=== PATIENT | female | born 1970 | race Caucasian/White ===

== ENCOUNTER 2017-01-27 09:25 | Day surgery (SDC) | payer BC ==
[2017-01-27] MEDS ORDERED: DIPRIVAN 200 MG/20 ML IV ONE (10:00)
--- NOTE | 2017-01-27 13:15 | XRAY ---
Indication: Right L3-S1 MBB. Intraoperative fluoroscopy was provided for 12 seconds. Single digital spot image submitted for interpretation demonstrates 4 posterior spinal needles with the tips projecting adjacent to the right L3-S1 superior facets. Correlate with intraoperative findings/report.
[2017-01-27] MEDS ORDERED: Lactated Ringers IV ONE (15:23)
[2017-01-27] MEDS ORDERED: Kenalog-40 IM ONE (15:23)
[2017-01-27] MEDS ORDERED: Sensorcaine 0.25% 10 ML IJ ONE (15:23)
--- NOTE | 2017-01-27 16:35 | XRAY ---
12 seconds of fluoroscopy was used in surgery for a right MBB L3-S1.
== END 2017-01-27 12:10 | disposition home or self-care (01) ==
LOC: SDC-PAIN 09:25
PROVIDERS: ATTEND Pain Medicine Interventional Pain Medicine
DX: M46.1 Sacroiliitis, not elsewhere classified (principal); M47.26 Other spondylosis with radiculopathy, lumbar region; M25.559 Pain in unspecified hip; Z79.891 Long term (current) use of opiate analgesic
CPT/HCPCS: 64493; 64494; 64495; 72020; 77003; J2704; J3301

== ENCOUNTER 2017-03-03 15:21 | Day surgery (SDC) | payer BC ==
[~2017-03-03 15:21] MED LIST: DIPRIVAN 200 MG/20 ML IV ONE; Kenalog-40 IM ONE; Lactated Ringers 1,000 ML IV ONE; Sensorcaine 0.25% 10 ML IJ ONE
--- NOTE | 2017-03-03 19:05 | XRAY ---
Indication: Right L2-L5 MBB. Intraoperative fluoroscopy was provided for 8 seconds. Single digital spot image submitted for interpretation demonstrates posterior spinal needles with the tips projecting over the expected course of the right L2-L5 nerve roots. Correlate with intraoperative findings/report.
--- NOTE | 2017-03-04 08:42 | XRAY ---
8 seconds fluoroscopy time in surgery for right L2-5 MBB
== END 2017-03-03 18:05 | disposition home or self-care (01) ==
LOC: SDC-PAIN 15:21
PROVIDERS: ATTEND Pain Medicine Interventional Pain Medicine
DX: M46.1 Sacroiliitis, not elsewhere classified (principal); M47.26 Other spondylosis with radiculopathy, lumbar region; M25.559 Pain in unspecified hip; Z79.891 Long term (current) use of opiate analgesic
CPT/HCPCS: 64493; 64494; 64495; 72020; 77003; J2704; J3301

== ENCOUNTER 2017-08-07 10:25 | Emergency (ER) | payer BC, OTHER ==
[2017-08-07] MEDS ORDERED: BACIGUENT PACKET TP ONE (11:34)
[2017-08-07] MEDS ORDERED: Marcaine 0.5% SDV 10 ML IJ ONE (11:34)
--- NOTE | 2017-08-07 11:37 | ERPHSYRPT ---
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 Burning pain in the ring finger. Tetanus vaccine up to date. No other injuries. Occurred: just prior to arrival Severity of Pain-Max: moderate Severity of Pain-Current: moderate Extremities Pain Location: 4th finger: left Allergies/Adverse Reactions: Penicillins Adverse Reaction (Verified 08/07/17 10:44) Home Medications: Omeprazole 20 MG [Prilosec 20 mg] 20 mg PO DAILY 11/25/13 [History] Biotin 10 mg PO DAILY 11/10/16 [History] Ca/D3/Mag Ox/Zinc/Telemarketing Supervisor/Tray/Bor [Calcium +D & Minerals Chew Tab] 1 each PO DAILY 11/10/16 [History] L.acidoph,Paracasei, B.lactis [Probiotic] 1 each PO TID 11/10/16 [History] Multivitamin with Minerals [One Daily Active] 1 each PO DAILY 11/10/16 [History] Omega3/Dha/Epa/Fish Oil/Vit D3 [Fish Oil + Vitamin D-3 Softgel] 1 each PO BID [History] [place]'s Wort 150 mg PO BID 11/10/16 [History] Hydrocodone Bit/Acetaminophen [[facility] 5-325 Tablet] 1 each PO Q6HPRN PRN [History] Hx Tetanus, Diphtheria Vaccination/Date Given: Yes (3 YRS) Hx Influenza Vaccination/Date Given: No Hx Pneumococcal Vaccination/Date Given: No Immunizations Up to Date: Yes - Review of Systems Constitutional: No Symptoms Musculoskeletal: Injury (left ring finger), No Back Pain, No Neck Pain Neurological: No Focal Weakness, No Parasthesia - Past Medical History Pertinent Past Medical History: Yes Other Medical History: BLEEDING ULCER - Past Surgical History Past Surgical History: No - Social History Smoking Status: Current every day smoker Exposure to second hand smoke: No Drug Use: none Patient Lives Alone: No - Nursing Vital Signs Nursing Vital Signs: Initial Vital Signs Temperature 98.4 F 08/07/17 10:41 Pulse Rate 66 08/07/17 10:41 Respiratory Rate 20 08/07/17 10:41 Blood Pressure 123/74 08/07/17 10:41 O2 Sat by Pulse Oximetry 98 08/07/17 10:41 Pain Scale Pain Intensity 2 - Physical Exam General Appearance: alert Eyes, Ears, Nose, Throat Exam: moist mucous membranes Neck Exam: supple Cardiovascular/Respiratory Exam: regular rate/rhythm Neuro/Tendon Exam: normal sensation (2 point intact distal to wound), normal motor functions, normal tendon functions Mental Status Exam: alert, oriented x 3, cooperative Skin Exam: warm, dry, No rash SpO2 Interpretation: normal SpO2: 98 Oxygen Delivery: Room Air Comments: 1.5 cm laceration palmar aspect left hand 4th finger at DIP. Procedures - Laceration/Wound Repair left ring finger Wound Location: Left Wound Length (cm): 1.5 Wound's Depth, Shape: linear, flap Wound Explored: no foreign body noted Irrigated: Yes Hibiclens Prep: Yes Anesthesia: digital block, marcaine 0.5 Volume Anesthetic (ccs): 3 Wound Repaired With: sutures Suture Size/Type: 4-0, nylon Number of Sutures: 3 Progress: 08/07/17 12:40 There was skin bleeding so brief tourniquette using ernesto drain applied. This wound is superficial and no tendon involvement. Good ROM. Repaired. Wound instr given. - Course Nursing assessment & vital signs reviewed: Yes Ordered Tests: Active Orders 24 hr Category Date Time Status Wound Care STAT Care 08/07/17 11:34 Active Medication Summary Discontinued Medications Generic Name Dose Route Start Last Admin Trade Name Jong PRN Reason Stop Dose Admin Bacitracin 0.9 gm 08/07/17 11:34 08/07/17 11:39 Baciguent Packet TP 08/07/17 11:35 0.9 gm STAT ONE Administration Bupivacaine HCl 5 ml 08/07/17 11:34 08/07/17 11:40 Marcaine 0.5% Sdv 10 Ml IJ 08/07/17 11:35 5 ml STAT ONE Administration Bupivacaine HCl Confirm 08/07/17 11:38 Marcaine 0.5% Sdv 10 Ml Administered 08/07/17 11:39 Dose 10 ml .ROUTE .STK-MED ONE - Progress Counseled pt/family regarding: diagnosis, need for follow-up - Departure Time of Disposition: 12:40 Departure Disposition: Home Clinical Impression: Laceration of finger Qualifiers: Encounter type: initial encounter Finger: ring finger Damage to nail status: without damage Foreign body presence: without foreign body Laterality: left Qualified Code(s): S61.215A - Laceration without foreign body of left ring finger without damage to nail, initial encounter Condition: Stable Critical Care Time: No Referrals: AP LEYVA [Primary Care Provider] - Instructions: Care for a Laceration After Repair Additional Instructions: LACERATION CARE 1. Do not use peroxide, merthiolate, alcohol, or betadine. 2. Keep wound clean and dry. 3. Change dressing if it becomes wet or soiled. 4. If you must work, wear protective covering. 5. You may return to the emergency department or see your family physician for suture removal. 6. See your family physician or return to the emergency department for any of the following signs or symptoms: A. Redness B. Swelling C. Discolored drainage D. Red streaks E. Elevated temperature F. Other signs of infection Suture removal in 13-14 days. Follow up with workers's comp doctor. May return to work but keep finger clean and dry.
[2017-08-07] MEDS ORDERED: Marcaine 0.5% SDV 10 ML ONE (11:38)
[2017-08-07] MEDS ORDERED: BACIGUENT PACKET ONE (12:49)
[2017-08-07 13:10] VITALS: BP 116/73; PULSE 70; O2SAT 99
== END 2017-08-07 13:08 | disposition home or self-care (01) ==
LOC: ED 10:25
PROC: 0HQGXZZ Repair Left Hand Skin, External Approach (ICD-10-PCS; principal; 2017-08-07)
DX: S61.215A Laceration without foreign body of left ring finger without damage to nail, initial encounter (principal); W26.0XXA Contact with knife, initial encounter; Y92.512 Supermarket, store or market as the place of occurrence of the external cause; Y99.0 Civilian activity done for income or pay
CPT/HCPCS: 12001; 99283; A9270-GY

== ENCOUNTER 2018-01-26 12:45 | Day surgery (SDC) | payer BC, SELFPAY ==
[2018-01-26] MEDS ORDERED: Xylocaine-Mpf 2% 5 Ml Vial IJ ONE (12:46)
[2018-01-26] MEDS ORDERED: Lactated Ringers 1,000 ML IV ONE (12:46)
[2018-01-26] MEDS ORDERED: DIPRIVAN 200 MG/20 ML IV ONE (12:46)
[2018-01-26] MEDS ORDERED: Xylocaine-Mpf 2 ML IJ ONE (12:46)
[2018-01-26] MEDS ORDERED: Marcaine 0.5% SDV 10 ML IJ ONE (12:46)
[2018-01-26] MEDS ORDERED: Ketamine HCl 50 MG/ML IV ONE (12:46)
--- NOTE | 2018-01-26 15:11 | XRAY ---
Indication: Right L2-L4 RFA. Intraoperative fluoroscopy was provided for 30 seconds. 2 digital spot images submitted for interpretation demonstrates posterior spinal needle tips projecting over the right L2, L3, and L4 pedicles. Correlate with intraoperative findings/report.
--- NOTE | 2018-01-26 15:13 | XRAY ---
30 seconds fluoroscopy time in surgery for right L2-4 RFA.
--- NOTE | 2018-01-27 11:14 | OP ---
DATE OF PROCEDURE: 01/26/2018 1417 SURGEON: Judd Diggs D.O. PREOPERATIVE DIAGNOSIS: Degenerative lumbosacral spine disease, spondylosis, low back pain. POSTOPERATIVE DIAGNOSIS: Degenerative lumbosacral spine disease, spondylosis, low back pain. PROCEDURES PERFORMED: Right L4, L3, L2 medial branch radiofrequency ablation under fluoroscopic guidance. DESCRIPTION OF PROCEDURE: The patient was taken to the operating room and laid in the prone position on the table. The skin over the injection site was prepped and draped in sterile fashion. Under fluoroscopy bony anatomy of the target injection site was visualized. Induction agent was given as per anesthesia while vital signs were monitored. Local anesthetic agent was introduced to anesthetize the skin and the subcutaneous tissue through the injection site. Under fluoroscopic guidance a standard size spinal needle with cannula was advanced into the target medial branch nerve as per standard protocol. Before the radiofrequency ablation motor and sensory nerve testing was conducted as per protocol. Under the safety guidance which ensured no motor nerves being involved, right L4, L3, L2 medial branch radiofrequency ablation was conducted at 80 degrees Celsius for 90 seconds as per standard protocol. After the spinal needle with the cannula was removed the skin was cleansed with alcohol and then a bandage was applied. No complications or adverse occurrences were observed. The patient was returned to the holding area until stabilized before being discharged to home. The residual pain after the procedure is 0 out of 10. There was no muscle weakness after the procedure. The patient will be followed up within 10 days after the procedure for re-evaluation.
== END 2018-01-26 15:25 | disposition home or self-care (01) ==
LOC: SDC-PAIN 12:45
PROVIDERS: ATTEND Internal Medicine
DX: M46.96 Unspecified inflammatory spondylopathy, lumbar region (principal); M54.5 Low back pain; M62.838 Other muscle spasm; Z79.891 Long term (current) use of opiate analgesic
CPT/HCPCS: 64635; 64636; 72020; 76000; J2704

== ENCOUNTER 2018-03-09 09:23 | Day surgery (SDC) | payer BC ==
[2018-03-09] MEDS ORDERED: LIDOCAINE HCL 1% AMPUL 5 ML IJ ONE (09:24)
[2018-03-09] MEDS ORDERED: DIPRIVAN 200 MG/20 ML IV ONE (09:24)
[2018-03-09] MEDS ORDERED: Marcaine 0.5% SDV 10 ML IJ ONE (09:24)
[2018-03-09] MEDS ORDERED: Lactated Ringers 1,000 ML IV ONE (10:29)
--- NOTE | 2018-03-09 13:03 | XRAY ---
Indication left L2-L4 MBB. Intraoperative fluoroscopy was provided for 1 minute 6 seconds. 4 digital spot images submitted for interpretation demonstrates posterior spinal needle tips projecting over the expected course of the left L2, L3, and L4 nerve roots. Correlate with intraoperative findings/report.
--- NOTE | 2018-03-09 13:15 | XRAY ---
1 minute and 6 seconds fluoroscopy time in surgery for left L2-4 MBB.
--- NOTE | 2018-03-10 10:28 | OP ---
DATE OF PROCEDURE: 03/09/2018 1124 SURGEON: Judd Diggs D.O. PREOPERATIVE DIAGNOSIS: Degenerative lumbar spine disease, spondylosis, low back pain. POSTOPERATIVE DIAGNOSIS: Degenerative lumbar spine disease, spondylosis, low back pain. PROCEDURE PERFORMED: Left L4, L3, L2 medial branch block under fluoroscopic guidance. DESCRIPTION OF THE PROCEDURE: The patient was taken to the operating room and placed in the prone position on the table. Skin at the injection site was prepped and draped in sterile fashion. Under fluoroscopy, bony anatomy of the targeted injection site was visualized. Induction agent was given as per anesthesia while vital signs were monitored. Local anesthetic agent of 0.5 cc of 1% lidocaine preservative free was introduced to anesthetize the skin and the subcutaneous tissue through the injection site. Under fluoroscopic guidance, a #20 gauge standard spinal needle was advanced into the target medial branch through the oblique approach. The preservative free 0.5 cc of 1% lidocaine and 0.5 cc of 0.25%-0.5% Marcaine were injected into each of the targeted medial branch nerve. After the needle was being removed, the skin was cleansed with alcohol and then a bandage was applied. No complications or adverse consequences were observed. The patient was returned to the holding area until stabilized before discharge to home. Preoperative pain level is 10 out of 10 and postoperative pain level is 0 out of 10. The patient will be followed up within ten days after the injection for re-evaluation.
== END 2018-03-09 12:10 | disposition home or self-care (01) ==
LOC: SDC-PAIN 09:23
PROVIDERS: ATTEND Internal Medicine
DX: M46.96 Unspecified inflammatory spondylopathy, lumbar region (principal); M54.5 Low back pain; M62.838 Other muscle spasm; Z79.891 Long term (current) use of opiate analgesic
CPT/HCPCS: 64493; 64494; 64495; 72020; 77003; J2704

== ENCOUNTER 2018-04-04 13:44 | Emergency (ER) | payer BC ==
[2018-04-04] MEDS ORDERED: BABY ASPIRIN 81 MG CHEW PO ONE (13:53)
--- NOTE | 2018-04-04 13:58 | ERPHSYRPT ---
- History of Present Illness Time Seen by Provider: 04/04/18 13:54 Historian: patient Exam Limitations: no limitations Physician History: 47-year-old white female who states she has a history of chronic pain secondary arthritis, she's had bleeding ulcer in the past. She arrives with complaint of pain in the left anterior chest and scapular area symptoms since 11:00 today worse with breathing worse with standing no nausea positive diaphoresis no shortness of breath. Past medical history includes bleeding ulcers, arthritis, chronic pain Past surgical history colonoscopy, EGD Timing/Duration: today (11:00 today), improved Quality: dullness Location: other (left anterior chest and scapular area) Chest Pain Radiation: arm (left shoulder) Severity of Pain-Max: moderate Severity of Pain-Current: mild Modifying Factors: Improves With: breathing (pain worse with breathing and standing) Associated Symptoms: hurts to breathe, diaphoresis, No nausea, No vomiting, No palpitations, No heartburn, No abdominal pain, No shortness of breath, No cough , No chills, No fever, No fatigue, No weakness, No swelling/lump in chest, No syncope, No rash, No headache, No dizziness, No edema, No back pain Prior Chest Pain/Cardiac Workup: no prior chest pain Nitro Today/Relief: no nitro taken today Aspirin Treatment Today: 81 mg x 4, provided by ED Allergies/Adverse Reactions: Penicillins Adverse Reaction (Verified 08/07/17 10:44) Home Medications: Omeprazole 20 MG [Prilosec 20 mg] 20 mg PO BID 11/25/13 [History] Biotin 10 mg PO DAILY 11/10/16 [History] Multivitamin with Minerals [One Daily Active] 1 each PO DAILY 11/10/16 [History] Paroxetine HCl 20 mg [Paxil 20 MG] 20 mg PO DAILY 08/30/17 [History] Tizanidine HCl 4 mg [Zanaflex 4 MG] 4 mg PO HS 01/05/18 [History] Flaxseed Oil [Flax Seed Oil] 1,000 mg PO DAILY 01/25/18 [History] Celecoxib [Celebrex] 200 mg PO DAILY 02/07/18 [History] Loratadine 10 mg [Claritin 10 mg] 10 mg PO DAILY 02/22/18 [History] [place]'s Wort 300 mg PO DAILY 03/31/18 [History] Celecoxib [Celecoxib] 200 mg DAILY 04/04/18 [History] Mesalamine [Apriso] 4 tab DAILY 04/04/18 [History] Hx Tetanus, Diphtheria Vaccination/Date Given: Yes (3 YRS) Hx Influenza Vaccination/Date Given: No Hx Pneumococcal Vaccination/Date Given: No - Review of Systems Constitutional: No Fever, No Chills Eyes: No Symptoms Ears, Nose, & Throat: No Symptoms Respiratory: No Cough, No Dyspnea Cardiac: Chest Pain Abdominal/Gastrointestinal: No Abdominal Pain, No Nausea, No Vomiting, No Diarrhea Genitourinary Symptoms: No Dysuria Musculoskeletal: No Back Pain, No Neck Pain Skin: No Rash Neurological: No Dizziness, No Focal Weakness, No Sensory Changes Psychological: No Symptoms Endocrine: No Symptoms All Other Systems: Reviewed and Negative - Past Medical History Pertinent Past Medical History: Yes Other Medical History: BLEEDING ULCER chronic pain from arthritis - Past Surgical History Past Surgical History: No - Social History Smoking Status: Current every day smoker Exposure to second hand smoke: No Drug Use: none Patient Lives Alone: No - Nursing Vital Signs Nursing Vital Signs: Initial Vital Signs Temperature 97.2 F 04/04/18 13:47 Pulse Rate 70 04/04/18 13:47 Respiratory Rate 16 04/04/18 13:47 Blood Pressure 157/76 04/04/18 13:47 O2 Sat by Pulse Oximetry 94 L 04/04/18 13:47 Pain Scale Pain Intensity 3 - Physical Exam General Appearance: mild distress Eye Exam: PERRL/EOMI, eyes nml inspection Ears, Nose, Throat Exam: normal ENT inspection, moist mucous membranes Neck Exam: normal inspection, non-tender, supple, full range of motion Respiratory Exam: normal breath sounds, lungs clear, No respiratory distress Cardiovascular Exam: regular rate/rhythm, normal heart sounds Gastrointestinal/Abdomen Exam: soft, No tenderness, No mass Back Exam: normal inspection, No CVA tenderness, No vertebral tenderness Extremity Exam: normal inspection, normal range of motion Neurologic Exam: alert, oriented x 3, cooperative, spa coordinator II-XII nml as tested, normal mood/affect, sensation nml, No motor deficits Skin Exam: normal color, warm, dry SpO2 Interpretation: normal - Course Nursing assessment & vital signs reviewed: Yes EKG Interpreted by Me: RATE (76 bpm), Sinus Rhythm, NORMAL AXIS, Other (EKG: Normal sinus rhythm, 76 bpm, normal axis, no acute ST or T wave changes, essentially normal EKG) - Radiology Exams Chest X-ray Interpretation: Interpreted by me (no acute disease process noted) Ordered Tests: Active Orders 24 hr Category Date Time Status Claims Assistant STAT Care 04/04/18 13:53 Active EKG-ER Only STAT Care 04/04/18 13:53 Active IV Insertion STAT Care 04/04/18 13:53 Active Pulse Oximetry (ED) STAT Care 04/04/18 13:53 Active CHEST 1 VIEW (PORTABLE) Stat Exams 04/04/18 13:53 Taken AMYLASE Routine Lab 04/04/18 13:55 Completed CBC W DIFF Stat Lab 04/04/18 13:53 Completed CMP Routine Lab 04/04/18 13:55 Completed D-DIMER QUANTITATION Stat Lab 04/04/18 13:55 Completed HCG QUALITATIVE,SERUM Stat Lab 04/04/18 13:55 Completed LIPASE Routine Lab 04/04/18 13:55 Completed PROTIME WITH INR Stat Lab 04/04/18 13:55 Completed PTT Stat Lab 04/04/18 13:55 Completed TROPONIN Q3H Lab 04/04/18 13:55 Completed TROPONIN Q3H Lab 04/04/18 17:00 Ordered TROPONIN Q3H Lab 04/04/18 20:00 Ordered TROPONIN Q3H Lab 04/04/18 23:00 Ordered TROPONIN Q3H Lab 04/05/18 02:00 Ordered Medication Summary Discontinued Medications Generic Name Dose Route Start Last Admin Trade Name Freq PRN Reason Stop Dose Admin Aspirin 324 mg 04/04/18 13:53 04/04/18 14:16 Baby Aspirin 81 Mg Chew PO 04/04/18 13:54 324 mg STAT ONE Administration Aspirin Confirm 04/04/18 14:15 Baby Aspirin 81 Mg Chew Administered 04/04/18 14:16 Dose 324 mg .ROUTE .STK-MED ONE Lab/Rad Data: Laboratory Result Diagrams 04/04/18 13:53 04/04/18 13:55 Laboratory Results 04/04/18 04/04/18 04/04/18 Range/Units 13:55 13:55 13:55 WBC (4.0-10.5) K/mm3 RBC (4.1-5.4) M/mm3 Hgb (12.0-16.0) gm/dl Hct (35-47) % MCV (78-100) fl MCH (26-32) pg MCHC (32-36) g/dl RDW (11.5-14.0) % Plt Count (150-450) K/mm3 MPV (6-9.5) fl Gran % (36.0-66.0) % Eos # (Auto) (0-0.5) Absolute Lymphs (auto) (1.0-4.6) Absolute Monos (auto) (0.0-1.3) Lymphocytes % (24.0-44.0) % Monocytes % (0.0-12.0) % Eosinophils % (0.00-5.0) % Basophils % (0.0-0.4) % Absolute Granulocytes (1.4-6.9) Basophils # (0-0.4) PT 11.2 (9.95-12.35) SECONDS INR 0.96 (0.8-3.0) APTT 34.0 (25.3-37.0) SECONDS D-Dimer 333 (215-500) ng/mL Sodium 144 (137-145) mmol/L Potassium 3.6 (3.5-5.1) mmol/L Chloride 107 (98-107) mmol/L Carbon Dioxide 27 (22-30) mmol/L Anion Gap 13.2 (5-15) MEQ/L BUN 18 H (7-17) mg/dL Creatinine 0.70 (0.52-1.04) mg/dL Estimated GFR > 60.0 ML/MIN Glucose 112 H (74-106) mg/dL Calcium 9.4 (8.4-10.2) mg/dL Total Bilirubin 0.10 L (0.2-1.3) mg/dL AST 25 (14-36) U/L ALT 26 (0-35) U/L Alkaline Phosphatase 107 (38-126) U/L Troponin I < 0.012 (0.000-0.034) ng/mL Serum Total Protein 7.1 (6.3-8.2) g/dL Albumin 4.1 (3.5-5.0) g/dL Amylase 74 (30-110) U/L Lipase 95 (23-300) U/L Serum , Qual NEGATIVE (Negative) 04/04/18 Range/Units 13:53 WBC 7.4 (4.0-10.5) K/mm3 RBC 4.37 (4.1-5.4) M/mm3 Hgb 12.4 (12.0-16.0) gm/dl Hct 38.0 (35-47) % MCV 87.0 (78-100) fl MCH 28.4 (26-32) pg MCHC 32.6 (32-36) g/dl RDW 13.7 (11.5-14.0) % Plt Count 285 (150-450) K/mm3 MPV 10.5 H (6-9.5) fl Gran % 55.6 (36.0-66.0) % Eos # (Auto) 0.11 (0-0.5) Absolute Lymphs (auto) 2.49 (1.0-4.6) Absolute Monos (auto) 0.66 (0.0-1.3) Lymphocytes % 33.8 (24.0-44.0) % Monocytes % 9.0 (0.0-12.0) % Eosinophils % 1.5 (0.00-5.0) % Basophils % 0.1 (0.0-0.4) % Absolute Granulocytes 4.10 (1.4-6.9) Basophils # 0.01 (0-0.4) PT (9.95-12.35) SECONDS INR (0.8-3.0) APTT (25.3-37.0) SECONDS D-Dimer (215-500) ng/mL Sodium (137-145) mmol/L Potassium (3.5-5.1) mmol/L Chloride (98-107) mmol/L Carbon Dioxide (22-30) mmol/L Anion Gap (5-15) MEQ/L BUN (7-17) mg/dL Creatinine (0.52-1.04) mg/dL Estimated GFR ML/MIN Glucose (74-106) mg/dL Calcium (8.4-10.2) mg/dL Total Bilirubin (0.2-1.3) mg/dL AST (14-36) U/L ALT (0-35) U/L Alkaline Phosphatase (38-126) U/L Troponin I (0.000-0.034) ng/mL Serum Total Protein (6.3-8.2) g/dL Albumin (3.5-5.0) g/dL Amylase (30-110) U/L Lipase (23-300) U/L Serum , Qual (Negative) - Progress Progress: improved Air Movement: fair Progress Note: 04/04/18 15:16 This is a 47-year-old white female she arrives with complaint of left sided chest pain and left subscapular chest pain Which began at 11:00 patient states she feels like it is related to mesalamine which she just began to take recently. Patient is now feeling much better after resting she was given aspirin 324 mg orally patient's labs are essentially normal with a normal troponin normal d- dimer and, chest x-ray unremarkable EKG sinus rhythm 76 bpm normal axis essentially normal EKG no acute ST or T wave changes. I have offered the patient to obtain repeat cardiac enzymes she does not want this. Will discharge the patient Will have patient contact her pain control electrician for family doctor and discusd the mesalamine with them. Patient is also advised to follow-up with her family doctor. - Departure Time of Disposition: 15:19 Departure Disposition: Home Clinical Impression: Non-cardiac chest pain, rule out medication side effect Condition: Fair Critical Care Time: No Referrals: AP LEYVA [Primary Care Provider] - Additional Instructions: Return home rest. Plenty of fluids. Follow-up with your family doctor or pain control electrician . Contact your pain control electrician or family doctor tomorrow prior to taking more mesalamine Return for acute distress or for severe symptoms.
[2018-04-04] MEDS ORDERED: BABY ASPIRIN 81 MG CHEW ONE (14:15)
[2018-04-04 14:40] LABS: INR 0.96 (0.8-3.0)
[2018-04-04 14:45] LABS: BASOPHIL % 0.1 % (0.0-0.4); Basophil (Absolute #) 0.01 (0-0.4); Eosinophil % 1.5 % (0.00-5.0); Eosinophil (Absolute #) 0.11 (0-0.5); Granulocytes % 55.6 % (36.0-66.0); Hemoglobin 12.4 gm/dl (12.0-16.0); Lymphocyte (Absolute #) 2.49 (1.0-4.6); Lymphocytes % 33.8 % (24.0-44.0); Mean Corpuscular Hemoglobin 28.4 pg (26-32); Mean Corpuscular Hgb Concent. 32.6 g/dl (32-36); Mean Platelet Volume 10.5 fl (6-9.5); Monocyte (Absolute #) 0.66 (0.0-1.3); Platelet Count 285 K/mm3 (150-450); Red Blood Count 4.37 M/mm3 (4.1-5.4); Red Cell Distribution Width 13.7 % (11.5-14.0); White Blood Count 7.4 K/mm3 (4.0-10.5)
[2018-04-04 14:46] LABS: ALBUMIN 4.1 g/dL (3.5-5.0); ALKALINE PHOSPHATASE 107 U/L (38-126); AMYLASE 74 U/L (30-110); ANION GAP 13.2 MEQ/L (5-15); BLOOD UREA NITROGEN 18 mg/dL (7-17); CHLORIDE 107 mmol/L (98-107); Calcium 9.4 mg/dL (8.4-10.2); Carbon Dioxide 27 mmol/L (22-30); Glucose 112 mg/dL (74-106); LIPASE 95 U/L (23-300); Potassium 3.6 mmol/L (3.5-5.1); SGOT/AST 25 U/L (14-36); SGPT/ALT 26 U/L (0-35); SODIUM 144 mmol/L (137-145); Total Protein 7.1 g/dL (6.3-8.2)
[2018-04-04 15:09] LABS: TROPONIN < 0.012 ng/mL (0.000-0.034)
[2018-04-04 15:14] VITALS: PULSE 73
[2018-04-04 15:34] VITALS: BP 116/78; O2SAT 94
--- NOTE | 2018-04-04 19:26 | XRAY ---
Indication: Chest pain and short of breath. Comparison: January 18, 2009. Portable chest again demonstrates normal heart, lungs, and bony thorax.
== END 2018-04-04 15:33 | disposition home or self-care (01) ==
LOC: ED 13:44
DX: R07.89 Other chest pain (principal); Z79.899 Other long term (current) drug therapy
CPT/HCPCS: 36000; 36415; 71045; 80053; 82150; 83690; 84484; 84703; 85025; 85379; 85610; 85730; 93005; 93041; 99284; A9270-GY

== ENCOUNTER 2018-04-06 11:50 | Day surgery (SDC) | payer BC ==
[2018-04-06] MEDS ORDERED: DIPRIVAN 200 MG/20 ML IV ONE (11:51)
[2018-04-06] MEDS ORDERED: Marcaine Mpf 0.5% Vial 30 Ml IJ ONE (11:51)
[2018-04-06] MEDS ORDERED: XYLOCAINE-MPF 1% 5ML SDV IJ ONE (11:51)
[2018-04-06] MEDS ORDERED: Lactated Ringers 1,000 ML IV ONE (13:11)
--- NOTE | 2018-04-06 19:01 | XRAY ---
Exam: Single view spine from 04/06/2018. Comparison: Single view spine from 03/09/2018. Indication: Left L3-L5 facet MBB. Findings: 34 seconds of intraoperative fluoroscopy time was utilized with the C-arm. 3 PA C-arm images were obtained. Distal spinal needle tips are seen in the projection of the anticipated left L3, L4, and L5 exiting nerve roots. Please correlate with intraoperative findings/report.
--- NOTE | 2018-04-07 08:05 | XRAY ---
34 seconds fluoroscopy time in surgery for left L3-L5 facette MBB.
--- NOTE | 2018-04-07 09:10 | OP ---
DATE OF PROCEDURE: 04/06/2018 1310 SURGEON: Judd Diggs D.O. PREOPERATIVE DIAGNOSIS: Degenerative lumbar spine disease, spondylosis, low back pain. POSTOPERATIVE DIAGNOSIS: Degenerative lumbar spine disease, spondylosis, low back pain. PROCEDURE PERFORMED: Left L4, L3, L2 medial branch block under fluoroscopic guidance. DESCRIPTION OF THE PROCEDURE: The patient was taken to the operating room and placed in the prone position on the table. Skin at the injection site was prepped and draped in sterile fashion. Under fluoroscopy, bony anatomy of the targeted injection site was visualized. Induction agent was given as per anesthesia while vital signs were monitored. The medication used for this procedure is 3 cc preservative-free 0.5% Marcaine. The local anesthetic agent used is preservative-free 6 cc of 1% lidocaine. Under fluoroscopic guidance, a #20 gauge standard spinal needle was advanced into the target medial branch through the oblique approach. After the needle was being removed, the skin was cleansed with alcohol and then a bandage was applied. No complications or adverse consequences were observed. The patient was returned to the holding area until stabilized before discharge to home. Preoperative pain level is 8 to 10 out of 10 and the postoperative pain level is 0 out of 10. The patient will be followed up within ten days after the injection for re-evaluation.
== END 2018-04-06 13:50 | disposition home or self-care (01) ==
LOC: SDC-PAIN 11:50
PROVIDERS: ATTEND Internal Medicine
DX: M47.816 Spondylosis without myelopathy or radiculopathy, lumbar region (principal); M46.96 Unspecified inflammatory spondylopathy, lumbar region; M54.5 Low back pain; M62.838 Other muscle spasm; Z79.891 Long term (current) use of opiate analgesic
CPT/HCPCS: 64493; 64494; 64495; 72020; 77003; J2704

== ENCOUNTER 2019-03-22 10:55 | Day surgery (SDC) | payer BC ==
[2019-03-22] MEDS ORDERED: Depo-Medrol 40 MG/ML IM ONE (10:56)
[2019-03-22] MEDS ORDERED: Ketamine HCl 50 MG/ML IJ ONE (10:56)
[2019-03-22] MEDS ORDERED: Marcaine 0.5% SDV 10 ML IJ ONE (10:56)
[2019-03-22] MEDS ORDERED: DIPRIVAN 200 MG/20 ML IV ONE (10:56)
[2019-03-22] MEDS ORDERED: Lactated Ringers 1,000 ML IV ONE (12:45)
--- NOTE | 2019-03-22 13:21 | XRAY ---
14 seconds fluoroscopy time in surgery for bilateral DSI joint injections.
--- NOTE | 2019-03-22 13:23 | XRAY ---
Indication: Bilateral SI joint injection. Intraoperative fluoroscopy was provided for 14 seconds. 4 digital spot images submitted for interpretation demonstrates posterior needle tips projecting over the inferior left and right SI joints. Correlate with intraoperative findings/report.
== END 2019-03-22 12:58 | disposition home or self-care (01) ==
LOC: SDC-PAIN 10:55
PROVIDERS: ATTEND Psychiatry & Neurology Pain Medicine
DX: M46.1 Sacroiliitis, not elsewhere classified (principal); K21.9 Gastro-esophageal reflux disease without esophagitis; F32.9 Major depressive disorder, single episode, unspecified; Z79.899 Other long term (current) drug therapy
CPT/HCPCS: 27096; 72202; 77002; 84703; J1030; J2704; G0260

== ENCOUNTER 2019-05-24 12:08 | Day surgery (SDC) | payer BC ==
[2019-05-24] MEDS ORDERED: Lactated Ringers 1,000 ML IV ONE (13:13)
[2019-05-24] MEDS ORDERED: DIPRIVAN 200 MG/20 ML IV ONE (13:24)
[2019-05-24] MEDS ORDERED: Ketamine HCl 50 MG/ML ONE (13:27)
[2019-05-24] MEDS ORDERED: Marcaine 0.5% SDV 10 ML IJ ONE (14:12)
[2019-05-24] MEDS ORDERED: Depo-Medrol 40 MG/ML IM ONE (14:12)
--- NOTE | 2019-05-24 15:30 | XRAY ---
Indication: Left knee injection. Intraoperative fluoroscopy was provided for 5 seconds. Single digital spot image submitted for interpretation demonstrates needle tip projecting over the left femur intercondylar notch. Small amount of contrast injected for needle tip placement. Correlate with intraoperative findings/report.
--- NOTE | 2019-05-24 15:30 | XRAY ---
Indication: Right knee injection. Intraoperative fluoroscopy was provided for 6 seconds. Single digital spot image submitted for interpretation demonstrates needle tip projecting over the right femur intercondylar notch. Small amount of contrast injected for needle tip placement. Correlate with intraoperative findings/report.
--- NOTE | 2019-05-24 16:51 | XRAY ---
5 seconds fluoroscopy time in surgery for left intra-articular knee injection.
--- NOTE | 2019-05-24 16:51 | XRAY ---
6 seconds fluoroscopy time in surgery for right knee intra-articular injection.
== END 2019-05-24 13:50 | disposition home or self-care (01) ==
LOC: SDC-PAIN 12:08
PROVIDERS: ATTEND Psychiatry & Neurology Pain Medicine
DX: M17.0 Bilateral primary osteoarthritis of knee (principal); K52.9 Noninfective gastroenteritis and colitis, unspecified; K21.9 Gastro-esophageal reflux disease without esophagitis; F32.9 Major depressive disorder, single episode, unspecified; Z79.899 Other long term (current) drug therapy
CPT/HCPCS: 20610; 73560; 77002; 84703; J1030; J2704; Q9966

== ENCOUNTER 2019-10-18 12:32 | Day surgery (SDC) | payer BC ==
[2019-10-18] MEDS ORDERED: Depo-Medrol 40 MG/ML IM ONE (12:33)
[2019-10-18] MEDS ORDERED: Marcaine Mpf 0.5% Vial 30 Ml IJ ONE (12:33)
[2019-10-18] MEDS ORDERED: Ketamine HCl 50 MG/ML ONE (13:35)
[2019-10-18] MEDS ORDERED: DIPRIVAN 200 MG/20 ML IV ONE ×2 (13:35→13:54)
--- NOTE | 2019-10-18 14:30 | XRAY ---
Indication: Right SI joint and right trochanteric bursa injection. Intraoperative fluoroscopy was provided for 22 seconds. 3 digital spot images submitted for interpretation demonstrates posterior needle tip projecting over the inferior right SI joint. Second needle tip adjacent to the right greater trochanter with small amount of contrast injected for needle tip placement. Correlate with intraoperative findings/report.
--- NOTE | 2019-10-18 14:32 | XRAY ---
Indication: Left SI joint and left trochanter bursa injection. Intraoperative fluoroscopy was provided for 23 seconds. 3 digital spot images submitted for interpretation demonstrates posterior needle tip projecting over the inferior left SI joint. Second needle tip adjacent to the left greater trochanter with small amount of contrast injected for needle tip placement. Correlate with intraoperative findings/report.
--- NOTE | 2019-10-18 14:32 | XRAY ---
23 seconds fluoroscopy time in surgery for left SI joint and left greater trochanter injections.
--- NOTE | 2019-10-18 14:42 | XRAY ---
22 seconds fluoroscopy time in surgery for right SI joint and right greater trochanter injections.
[2019-10-18] MEDS ORDERED: Lactated Ringers 1,000 ML IV ONE (17:05)
== END 2019-10-18 14:17 | disposition home or self-care (01) ==
LOC: SDC-PAIN 12:32
PROVIDERS: ATTEND Psychiatry & Neurology Pain Medicine
DX: M46.1 Sacroiliitis, not elsewhere classified (principal); M70.62 Trochanteric bursitis, left hip; M70.61 Trochanteric bursitis, right hip; K21.9 Gastro-esophageal reflux disease without esophagitis; F32.9 Major depressive disorder, single episode, unspecified; Z79.899 Other long term (current) drug therapy
CPT/HCPCS: 20610; 27096; 73502; 77002; 84703; J1030; J2704; Q9966; G0260

== ENCOUNTER 2020-01-03 10:54 | Day surgery (SDC) | payer BC ==
[2020-01-03] MEDS ORDERED: Xylocaine 1% Vial 30 ML PF IJ ONE (10:55)
[2020-01-03] MEDS ORDERED: Depo-Medrol 40 MG/ML IM ONE (10:55)
[2020-01-03] MEDS ORDERED: Sodium Chloride 0.9(Preservative Free) 10 ML IJ ONE (10:55)
[2020-01-03] MEDS ORDERED: DIPRIVAN 200 MG/20 ML IV ONE ×2 (12:14→12:29)
[2020-01-03] MEDS ORDERED: Ketamine HCl 50 MG/ML ONE (12:14)
[2020-01-03] MEDS ORDERED: Lactated Ringers 1,000 ML IV ONE (13:39)
--- NOTE | 2020-01-03 15:46 | XRAY ---
Indication: Caudal GEORGE. Intraoperative fluoroscopy was provided for 1 minute and 11 seconds. 2 digital spot images submitted for interpretation demonstrates posterior midline needle tip just posterior to the mid sacrum level. Small amount of contrast injected for needle tip placement. Correlate with intraoperative findings/report.
--- NOTE | 2020-01-03 16:42 | XRAY ---
1 minute and 11 seconds fluoroscopy time in surgery for caudal GEORGE.
== END 2020-01-03 12:56 | disposition home or self-care (01) ==
LOC: SDC-PAIN 10:54
PROVIDERS: ATTEND Psychiatry & Neurology Pain Medicine
DX: M54.16 Radiculopathy, lumbar region (principal); M47.819 Spondylosis without myelopathy or radiculopathy, site unspecified; K52.9 Noninfective gastroenteritis and colitis, unspecified; K21.9 Gastro-esophageal reflux disease without esophagitis; Z79.899 Other long term (current) drug therapy
CPT/HCPCS: 62323; 72220; 77003; 84703; J1030; J2001; J2704; Q9966

== ENCOUNTER 2020-04-25 22:32 | Emergency (ER) | payer BC ==
[2020-04-25 23:05] LABS: BASOPHIL % 0.1 % (0.0-0.4); Basophil (Absolute #) 0.01 (0-0.4); Eosinophil (Absolute #) 0.11 (0-0.5); Hematocrit 40.2 % (35-47); Hemoglobin 12.8 gm/dl (12.0-16.0); Lymphocyte (Absolute #) 3.18 (1.0-4.6); Lymphocytes % 28.8 % (24.0-44.0); Mean Cell Volume 88.9 fl (78-100); Mean Corpuscular Hemoglobin 28.3 pg (26-32); Mean Corpuscular Hgb Concent. 31.8 g/dl (32-36); Mean Platelet Volume 9.8 fl (7.5-11.0); Monocyte (Absolute #) 1.06 (0.0-1.3); Monocytes % 9.6 % (0.0-12.0); Neutrophil % 60.5 % (36.0-66.0); Platelet Count 281 K/mm3 (150-450); Red Blood Count 4.52 M/mm3 (4.1-5.4); Red Cell Distribution Width 13.6 % (11.5-14.0); White Blood Count 11.1 K/mm3 (4.0-10.5)
[2020-04-25 23:19] LABS: ALBUMIN 4.2 g/dL (3.5-5.0); ALKALINE PHOSPHATASE 105 U/L (38-126); ANION GAP 15.3 MEQ/L (5-15); BLOOD UREA NITROGEN 12 mg/dL (7-17); CHLORIDE 109 mmol/L (98-107); Calcium 9.5 mg/dL (8.4-10.2); Carbon Dioxide 23 mmol/L (22-30); Creatinine 1 0.63 mg/dL (0.52-1.04); ETHYL ALCOHOL 149 mg/dL (0-10); Glucose 146 mg/dL (74-106); SGOT/AST 25 U/L (14-36); SGPT/ALT 26 U/L (0-35); SODIUM 144 mmol/L (137-145); Total Protein 7.2 g/dL (6.3-8.2)
[2020-04-25 23:22] LABS: ACETAMINOPHEN < 10 ug/ml (10-30); Potassium 2.8 mmol/L (3.5-5.1); SALICYLATE < 1.0 mg/dL (2-20)
[2020-04-25] MEDS ORDERED: Klor Con 10 MEQ PO ONE ×2 (23:24→23:35)
--- NOTE | 2020-04-25 23:30 | ERPHSYRPT ---
- History of Present Illness Time Seen by Provider: 04/25/20 22:40 Source: patient Patient Subjective Stated Complaint: "He accused me of stealing my dad's gun. I didn't do it. I told alek that I just don't want to be here anymore because I hurt so bad." Pt presented alert et intoxicated. Pt presented unkept. Pt reported that she was accused of stealing and drank and texted her neice that she didn't want to be here anymore. Pt denied active plan of self harm. Pupils 4mm reactive. Symmetrical chest expansion. Lungs clear with adequate airflow. Heart tones regular/clear. Triage Nursing Assessment: Law enforcement and EMS reported that the patient sent text messages stating that she wanted to kill herself. Physician History: Patient is a 49-year-old female presents to our ED via PD for evaluation of alcohol intoxication and suicidal ideation. Patient states that she got into a dispute with her nephew regarding money and a missing firearm. Patient became upset and decided to drink alcohol. Patient states she drank a fireball. No other chemicals or toxic substances ingested. Patient works at [employer]. Patient denies homicidal suicidal ideation at this time. However she sent a text to her nephew stating that she was planning on killing herself via overdose. Please officer has pictures of the texts that patient sent her nep hew. Patient's niece called police after observing that text. Patient has been compliant. Noncombative. Patient states that she had too much to drink. Patient states she will not hurt herself. No trauma reported. No fever. No nausea or vomiting. No diarrhea. No rash. Symptoms are mild to moderate intensity. No specific worsening or improving factors. Patient states she is otherwise healthy. She voices no other complaints at this time. Timing/Duration: today Severity of Symptoms-Max: moderate Severity of Symptoms-Current: mild Context related to: other (Family dispute.) Suicidal thoughts: gesture Associated Symptoms: suicidal ideation Previous symptoms: no prior history Allergies/Adverse Reactions: Penicillins Adverse Reaction (Verified 08/07/17 10:44) Home Medications: Paroxetine HCl 20 mg [Paxil 20 MG] 20 mg PO DAILY 08/30/17 [History] Henok's Wort 300 mg PO DAILY 03/31/18 [History] Oxycodone HCl/Acetaminophen [Percocet 5-325 mg Tablet] 1 tab PO BID 04/25/20 [History] Hx Tetanus, Diphtheria Vaccination/Date Given: Yes Hx Influenza Vaccination/Date Given: Yes Hx Pneumococcal Vaccination/Date Given: No Travel Risk - International Travel Have you traveled outside of the country in past 3 weeks: No - Coronavirus Screening Close contact with a COVID-19 positive Pt in past 14-21 Days: No - Past Medical History Pertinent Past Medical History: Yes Musculoskeletal History: Arthritis GI Medical History: Ulcer Other Medical History: BLEEDING ULCER chronic pain from arthritis - Past Surgical History Past Surgical History: No - Social History Smoking Status: Former smoker Exposure to second hand smoke: No Drug Use: none Patient Lives Alone: No - Female History Hx Now: No - Review of Systems Constitutional: No Symptoms, No Fever, No Chills Eyes: No Symptoms Ears, Nose, & Throat: No Symptoms Respiratory: No Symptoms, No Cough, No Dyspnea Cardiac: No Symptoms, No Chest Pain, No Edema, No Syncope Abdominal/Gastrointestinal: No Symptoms, No Abdominal Pain, No Nausea, No Vomiting, No Diarrhea Genitourinary Symptoms: No Symptoms, No Dysuria Musculoskeletal: No Symptoms, No Back Pain, No Neck Pain Skin: No Symptoms, No Rash Neurological: No Symptoms, No Dizziness, No Focal Weakness, No Sensory Changes Psychological: No Symptoms Endocrine: No Symptoms Hematologic/Lymphatic: No Symptoms Immunological/Allergic: No Symptoms All Other Systems: Reviewed and Negative - Nursing Vital Signs Nursing Vital Signs: Initial Vital Signs Temperature 98.2 F 04/25/20 22:32 Pulse Rate 72 04/25/20 22:32 Respiratory Rate 18 04/25/20 22:32 Blood Pressure 127/67 04/25/20 22:32 O2 Sat by Pulse Oximetry 97 04/25/20 22:32 Pain Scale Pain Intensity 0 - Physical Exam General Appearance: no apparent distress Eyes, Ears, Nose, Throat Exam: normal ENT inspection, moist mucous membranes Neck Exam: normal inspection, non-tender, supple Respiratory Exam: normal breath sounds, lungs clear, No respiratory distress Cardiovascular Exam: regular rate/rhythm, No edema Gastrointestinal/Abdominal Exam: soft, No tenderness, No distention Extremities Exam: normal inspection, normal range of motion, No evidence of injury, No edema Current Suicidality: denies suicide plan Neurological Exam: 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, 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 as tested, oriented x 3 Appearance: appropriate appearance Behavior/Eye Contact/Speech: alert & cooperative, intoxicated appearance, No threatening eye contact, No decreased rate of speech, No increased rate of speech, No agitated Thoughts/Hallucinations: no apparent hallucination, No auditory hallucinations, No delusions, No grandiose Skin Exam: normal color, warm, dry, No rash SpO2 Interpretation: normal SpO2: 97 O2 Delivery: Room Air Ordered Tests: Active Orders 24 hr Category Date Time Status ACETAMINOPHEN Stat Lab 04/25/20 23:02 Completed CBC W DIFF Stat Lab 04/25/20 23:02 Completed CMP Stat Lab 04/25/20 23:02 Completed ETHYL ALCOHOL Stat Lab 04/25/20 23:02 Completed ETHYL ALCOHOL Stat Lab 04/26/20 01:17 Completed ETHYL ALCOHOL Stat Lab 04/26/20 03:50 Completed SALICYLATE Stat Lab 04/25/20 23:02 Completed UA W/RFX UR CULTURE Stat Lab 04/25/20 23:20 Completed Urine Triage Profile Stat Lab 04/25/20 23:20 Completed Medication Summary Discontinued Medications Generic Name Dose Route Start Last Admin Trade Name Freq PRN Reason Stop Dose Admin Potassium Chloride 40 meq 04/25/20 23:24 04/25/20 23:35 Klor Con 10 Meq PO 04/25/20 23:25 40 meq STAT ONE Administration Potassium Chloride Confirm 04/25/20 23:35 Klor Con 10 Meq Administered 04/25/20 23:36 Dose 40 meq PO .STK-MED ONE Lab/Rad Data: Laboratory Result Diagrams 04/25/20 23:02 04/25/20 23:02 Laboratory Results 04/26/20 04/26/20 04/25/20 Range/Units 03:50 01:17 23:20 WBC (4.0-10.5) K/mm3 RBC (4.1-5.4) M/mm3 Hgb (12.0-16.0) gm/dl Hct (35-47) % MCV (78-100) fl MCH (26-32) pg MCHC (32-36) g/dl RDW (11.5-14.0) % Plt Count (150-450) K/mm3 MPV (7.5-11.0) fl Gran % (36.0-66.0) % Eos # (Auto) (0-0.5) Absolute Lymphs (auto) (1.0-4.6) Absolute Monos (auto) (0.0-1.3) Lymphocytes % (24.0-44.0) % Monocytes % (0.0-12.0) % Eosinophils % (0.00-5.0) % Basophils % (0.0-0.4) % Absolute Granulocytes (1.4-6.9) Basophils # (0-0.4) Sodium (137-145) mmol/L Potassium (3.5-5.1) mmol/L Chloride (98-107) mmol/L Carbon Dioxide (22-30) mmol/L Anion Gap (5-15) MEQ/L BUN (7-17) mg/dL Creatinine (0.52-1.04) mg/dL Estimated GFR ML/MIN Glucose (74-106) mg/dL Calcium (8.4-10.2) mg/dL Total Bilirubin (0.2-1.3) mg/dL AST (14-36) U/L ALT (0-35) U/L Alkaline Phosphatase (38-126) U/L Serum Total Protein (6.3-8.2) g/dL Albumin (3.5-5.0) g/dL Urine Color (YELLOW) Urine Appearance (CLEAR) Urine pH (5-6) Ur Specific [place] (1.005-1.025) Urine Protein (Negative) Urine Ketones (NEGATIVE) Urine Blood (0-5) Corwin/ul Urine Nitrite (NEGATIVE) Urine Bilirubin (NEGATIVE) Urine Urobilinogen (0-1) mg/dL Ur Leukocyte Esterase (NEGATIVE) Urine WBC (Auto) (0-5) /HPF Urine RBC (Auto) (0-2) /HPF U Epithel Cells (Auto) (FEW) /HPF Urine Bacteria (Auto) (NEGATIVE) /HPF Urine Culture Reflexed (NO) Urine Glucose (NEGATIVE) mg/dL Salicylates (2-20) mg/dL Urine Opiates Level NEGATIVE (NEGATIVE) Ur Methadone NEGATIVE (NEGATIVE) Acetaminophen (10-30) ug/ml Urine Barbiturates NEGATIVE (NEGATIVE) Ur Phencyclidine (PCP) NEGATIVE (NEGATIVE) Urine Amphetamine NEGATIVE (NEGATIVE) U Benzodiazepine Level NEGATIVE (NEGATIVE) Urine Cocaine NEGATIVE (NEGATIVE) Urine Marijuana (THC) NEGATIVE (NEGATIVE) Ethyl Alcohol 72 H 116 H (0-10) mg/dL 04/25/20 04/25/20 04/25/20 Range/Units 23:20 23:02 23:02 WBC 11.1 H (4.0-10.5) K/mm3 RBC 4.52 (4.1-5.4) M/mm3 Hgb 12.8 (12.0-16.0) gm/dl Hct 40.2 (35-47) % MCV 88.9 (78-100) fl MCH 28.3 (26-32) pg MCHC 31.8 L (32-36) g/dl RDW 13.6 (11.5-14.0) % Plt Count 281 (150-450) K/mm3 MPV 9.8 (7.5-11.0) fl Gran % 60.5 (36.0-66.0) % Eos # (Auto) 0.11 (0-0.5) Absolute Lymphs (auto) 3.18 (1.0-4.6) Absolute Monos (auto) 1.06 (0.0-1.3) Lymphocytes % 28.8 (24.0-44.0) % Monocytes % 9.6 (0.0-12.0) % Eosinophils % 1.0 (0.00-5.0) % Basophils % 0.1 (0.0-0.4) % Absolute Granulocytes 6.70 (1.4-6.9) Basophils # 0.01 (0-0.4) Sodium 144 (137-145) mmol/L Potassium 2.8 L* (3.5-5.1) mmol/L Chloride 109 H (98-107) mmol/L Carbon Dioxide 23 (22-30) mmol/L Anion Gap 15.3 H (5-15) MEQ/L BUN 12 (7-17) mg/dL Creatinine 0.63 (0.52-1.04) mg/dL Estimated GFR > 60.0 ML/MIN Glucose 146 H (74-106) mg/dL Calcium 9.5 (8.4-10.2) mg/dL Total Bilirubin 0.20 (0.2-1.3) mg/dL AST 25 (14-36) U/L ALT 26 (0-35) U/L Alkaline Phosphatase 105 (38-126) U/L Serum Total Protein 7.2 (6.3-8.2) g/dL Albumin 4.2 (3.5-5.0) g/dL Urine Color COLORLESS (YELLOW) Urine Appearance CLEAR (CLEAR) Urine pH 6.0 (5-6) Ur Specific [place] 1.002 (1.005-1.025) Urine Protein NEGATIVE (Negative) Urine Ketones NEGATIVE (NEGATIVE) Urine Blood NEGATIVE (0-5) Corwin/ul Urine Nitrite NEGATIVE (NEGATIVE) Urine Bilirubin NEGATIVE (NEGATIVE) Urine Urobilinogen NEGATIVE (0-1) mg/dL Ur Leukocyte Esterase NEGATIVE (NEGATIVE) Urine WBC (Auto) NONE (0-5) /HPF Urine RBC (Auto) NONE (0-2) /HPF U Epithel Cells (Auto) NONE (FEW) /HPF Urine Bacteria (Auto) NONE SEEN (NEGATIVE) /HPF Urine Culture Reflexed NO (NO) Urine Glucose NEGATIVE (NEGATIVE) mg/dL Salicylates < 1.0 L (2-20) mg/dL Urine Opiates Level (NEGATIVE) Ur Methadone (NEGATIVE) Acetaminophen < 10 L (10-30) ug/ml Urine Barbiturates (NEGATIVE) Ur Phencyclidine (PCP) (NEGATIVE) Urine Amphetamine (NEGATIVE) U Benzodiazepine Level (NEGATIVE) Urine Cocaine (NEGATIVE) Urine Marijuana (THC) (NEGATIVE) Ethyl Alcohol 149 H (0-10) mg/dL - Progress Progress: improved Progress Note: 04/26/20 06:57 Patient was in our ED for approximately 8 hours. We trended her alcohol level. We spoke to [facility]. [facility] performed and over the phone interview with patient patient cleared for discharge. Patient reassessed the discharge. She feels well. Patient denies homicidal suicidal ideation. Patient is regretful of what she did. She appears to have very good insight. Patient feels that she is ready to go home. No indication for further work-up at this time will discharge patient home. Discussed with : Other ([facility]. ) Will see patient in: office Counseled pt/family regarding: lab results, diagnosis, need for follow-up, rad results - Departure Departure Disposition: Home Clinical Impression: Alcohol intoxication, Suicidal ideation, Hypokalemia Condition: Stable Critical Care Time: No Referrals: AP LEYVA [Primary Care Provider] -
[2020-04-25 23:52] LABS: Appearance CLEAR (CLEAR); Bilirubin NEGATIVE (NEGATIVE); Blood NEGATIVE Ery/ul (0-5); Glucose NEGATIVE (NEGATIVE); Ketones NEGATIVE (NEGATIVE); Leukocyte Esterase NEGATIVE (NEGATIVE); Nitrite NEGATIVE (NEGATIVE); Protein,Urine Dip NEGATIVE (Negative); Specific Gravity 1.002 (1.005-1.025); Urobilinogen NEGATIVE mg/dL (0-1)
[2020-04-26 00:03] LABS: Bacteria NONE SEEN /HPF (NEGATIVE)
[2020-04-26 00:06] LABS: Amphetamine,Urine NEGATIVE (NEGATIVE); Barbiturate,Urine NEGATIVE (NEGATIVE); Benzodiazepine,Urine NEGATIVE (NEGATIVE); Cocaine,Urine NEGATIVE (NEGATIVE); Methadone,Urine NEGATIVE (NEGATIVE); Opiate,Urine NEGATIVE (NEGATIVE); PCP,Urine NEGATIVE (NEGATIVE); THC,Urine NEGATIVE (NEGATIVE)
[2020-04-26 06:25] VITALS: BP 101/65; PULSE 54
[2020-04-26 06:58] VITALS: O2SAT 97
== END 2020-04-26 07:08 | disposition home or self-care (01) ==
LOC: ED 22:32
DX: F10.129 Alcohol abuse with intoxication, unspecified (principal); R45.851 Suicidal ideations; E87.6 Hypokalemia
CPT/HCPCS: 36415; 80053; 80307; 81001; 85025; 99284; G0481; 90791; Q3014; A9270-GY; G0480

== ENCOUNTER 2021-05-28 07:54 | Day surgery (SDC) | payer BC ==
[2021-05-28] MEDS ORDERED: Depo-Medrol 40 MG/ML IM ONE (07:55)
[2021-05-28] MEDS ORDERED: BUPIVACAINE 0.5% VIAL IJ ONE (07:55)
[2021-05-28] MEDS ORDERED: DIPRIVAN 200 MG/20 ML IV ONE (08:50)
--- NOTE | 2021-05-28 10:22 | XRAY ---
Indication: Right knee injection. Intraoperative fluoroscopy provided for 5 seconds. Single digital spot image submitted for interpretation demonstrates needle tip projecting over the right femur intercondylar notch. Small amount of contrast injected for needle tip placement. Correlate with intraoperative findings/report.
--- NOTE | 2021-05-28 10:22 | XRAY ---
5 seconds fluoroscopy time in surgery for intra-articular injection of the right knee.
[2021-05-28] MEDS ORDERED: Lactated Ringers 1,000 ML IV ONE (15:51)
== END 2021-05-28 09:28 | disposition home or self-care (01) ==
LOC: SDC-PAIN 07:54
PROVIDERS: ATTEND Psychiatry & Neurology Pain Medicine
DX: M17.11 Unilateral primary osteoarthritis, right knee (principal); Z79.899 Other long term (current) drug therapy
CPT/HCPCS: 20610; 73560; 77002; 84703; J1030; J2704; Q9966

== ENCOUNTER 2021-09-03 15:31 | Day surgery (SDC) | payer BC ==
[2021-09-03] MEDS ORDERED: BUPIVACAINE 0.5% VIAL IJ ONE (15:32)
[2021-09-03] MEDS ORDERED: Depo-Medrol 40 MG/ML IM ONE (15:32)
[2021-09-03] MEDS ORDERED: Lactated Ringers 1,000 ML IV ONE (17:29)
[2021-09-03] MEDS ORDERED: DIPRIVAN 200 MG/20 ML IV ONE (18:50)
--- NOTE | 2021-09-04 07:24 | XRAY ---
Indication: Right knee injection. Intraoperative fluoroscopy provided for 5 seconds. Single digital spot image submitted for interpretation demonstrates needle tip projecting right femur intercondylar notch. Small amount of contrast injected for needle tip placement. Correlate with intraoperative findings/report.
--- NOTE | 2021-09-04 09:07 | XRAY ---
5 seconds fluoroscopy time in surgery for intra-articular injection of the right knee.
== END 2021-09-03 19:15 | disposition home or self-care (01) ==
LOC: SDC-PAIN 15:31
PROVIDERS: ATTEND Psychiatry & Neurology Pain Medicine
DX: M17.11 Unilateral primary osteoarthritis, right knee (principal); K21.9 Gastro-esophageal reflux disease without esophagitis; F32.9 Major depressive disorder, single episode, unspecified; K52.839 Microscopic colitis, unspecified; Z79.899 Other long term (current) drug therapy
CPT/HCPCS: 20610; 73560; 77002; 84703; J1030; J2704; Q9966

== ENCOUNTER 2022-01-29 12:28 | Day surgery (SDC) | payer BC ==
[2022-01-29] MEDS ORDERED: Depo-Medrol 40 MG/ML IM ONE (12:29)
[2022-01-29] MEDS ORDERED: BUPIVACAINE 0.5% VIAL IJ ONE (12:29)
[2022-01-29] MEDS ORDERED: Lactated Ringers 1,000 ML IV ONE (13:56)
[2022-01-29] MEDS ORDERED: DIPRIVAN 200 MG/20 ML IV ONE (14:24)
--- NOTE | 2022-01-29 15:30 | XRAY ---
Indication: Bilateral SI joint injection. Intraoperative fluoroscopy provided for 21 seconds. 4 digital spot images submitted for interpretation demonstrates posterior needle tip projecting over the inferior left and right SI joints. Correlate with intraoperative findings/report.
--- NOTE | 2022-01-29 15:33 | XRAY ---
21 seconds of fluoroscopy was used in surgery for a bilateral sacroiliac joint injection.
== END 2022-01-29 14:52 | disposition home or self-care (01) ==
LOC: SDC-PAIN 12:28 → EDSTATUS 15:36
PROVIDERS: ATTEND Psychiatry & Neurology Pain Medicine
DX: M46.1 Sacroiliitis, not elsewhere classified (principal); Z79.899 Other long term (current) drug therapy
CPT/HCPCS: 27096; 72202; 77002; 84703; J1030; J2704; G0260

== ENCOUNTER 2022-02-25 12:56 | Day surgery (SDC) | payer BC ==
[2022-02-25] MEDS ORDERED: BUPIVACAINE 0.5% VIAL IJ ONE (12:57)
[2022-02-25] MEDS ORDERED: Depo-Medrol 40 MG/ML IM ONE (12:57)
[2022-02-25] MEDS ORDERED: Lactated Ringers 1,000 ML IV ONE (15:56)
[2022-02-25] MEDS ORDERED: DIPRIVAN 200 MG/20 ML IV ONE (16:13)
--- NOTE | 2022-02-25 17:42 | XRAY ---
Indication: Right knee injection. Intraoperative fluoroscopy provided for 9 seconds. Single digital spot image submitted for interpretation demonstrates needle tip projecting over the right femur intercondylar notch. Small amount of contrast injected for needle tip placement. Correlate with intraoperative findings/report.
--- NOTE | 2022-02-26 08:49 | XRAY ---
9 seconds fluoroscopy time in surgery for intra-articular and pes anserinus injections of the right knee.
== END 2022-02-25 16:35 | disposition home or self-care (01) ==
LOC: SDC-PAIN 12:56
PROVIDERS: ATTEND Psychiatry & Neurology Pain Medicine
DX: M17.11 Unilateral primary osteoarthritis, right knee (principal); Z79.899 Other long term (current) drug therapy
CPT/HCPCS: 20610; 73560; 77002; 84703; J1030; J2704; Q9966

== ENCOUNTER 2022-07-29 14:08 | Day surgery (SDC) | payer BC ==
[2022-07-29] MEDS ORDERED: Marcaine Mpf 0.5% Vial 30 Ml IJ ONE (14:09)
[2022-07-29] MEDS ORDERED: Depo-Medrol 40 MG/ML IM ONE (14:09)
[2022-07-29] MEDS ORDERED: Lactated Ringers 1,000 ML IV ONE (16:06)
[2022-07-29] MEDS ORDERED: DIPRIVAN 200 MG/20 ML IV ONE (16:28)
--- NOTE | 2022-07-29 17:21 | XRAY ---
5 seconds of fluoroscopy was used in surgery for a right knee intra-articular injection.
== END 2022-07-29 16:50 | disposition home or self-care (01) ==
LOC: SDC-PAIN 14:08
PROVIDERS: ATTEND Psychiatry & Neurology Pain Medicine
DX: M17.11 Unilateral primary osteoarthritis, right knee (principal); Z79.899 Other long term (current) drug therapy
CPT/HCPCS: 20610; 73560; 77002; 81025; J1030; J2704; Q9966

== ENCOUNTER 2022-09-03 13:42 | Emergency (ER) | payer BC, OTHER ==
[2022-09-03 14:26] VITALS: O2SAT 96
[2022-09-03] MEDS ORDERED: TORAdol 30 mg Injection IM ONE (14:55)
--- NOTE | 2022-09-03 15:01 | ERPHSYRPT ---
- History of Present Illness Source: patient Exam Limitations: no limitations Patient Subjective Stated Complaint: C/O pain to back of head, right upper posterior arm, left hip, and entire back after a fall at work. Fall happened approx 1 hour prior to arriving in ED. Patient fell off of a step ladder. States did NOT lose conciousness. Triage Nursing Assessment: Patient ambulated back to ED without difficulties. She is alert and oriented. No SOB. Patient with limited ROM in shoulders when trying to take off shirt and put on gown. NO bruising or lacerations noted at this time to any areas of noted pain except to left upper back. Left upper back in noted to have a few scratches/small abrasions. No active bleeding. Physician History: 52 yo WF fell backward off ladder while working at [employer]. Pt complains of ARMSTRONG/cervical pain/L scapular pain/Lumbar pain/L posterior buttock pain/R posterior arm pain. Pain is severe and worse w movement. She denies LOC but was dazed. Occurred: just prior to arrival Reason for Fall: lost balance (Lost balance off ladder) Injuries/Pain Location: head, neck, upper extremity, back, pelvis Loss of Consciousness: no loss of consciousness, dazed Quality: aching Severity of Pain-Max: severe Severity of Pain-Current: severe Modifying Factors: Improves With: movement Allergies/Adverse Reactions: Penicillins Adverse Reaction (Verified 09/03/22 14:13) Home Medications: Paroxetine HCl 20 mg [Paxil 20 MG] 20 mg PO DAILY 08/30/17 [History] Oxycodone HCl/Acetaminophen [Percocet 5-325 mg Tablet] 1 tab PO BID 04/25/20 [History] hydroCHLOROthiazide [Hydrochlorothiazide] 1 tab PO DAILY 09/03/22 [History] Hx Tetanus, Diphtheria Vaccination/Date Given: Yes Hx Influenza Vaccination/Date Given: Yes Hx Pneumococcal Vaccination/Date Given: No Immunizations Up to Date: Yes Travel Risk - International Travel Have you traveled outside of the country in past 3 weeks: No - Coronavirus Screening Are you exhibiting any of the following symptoms?: No Close contact with a COVID-19 positive Pt in past 14-21 Days: No - Vaccine Status Have you recieved a Covid-19 vaccination: Yes [employer]: [employer] - Vaccination Dates Date of 2cond Vaccination (if applicable): 2020 - Review of Systems Constitutional: No Symptoms Eyes: No Symptoms Ears, Nose, & Throat: No Symptoms Respiratory: No Symptoms Cardiac: No Symptoms Abdominal/Gastrointestinal: No Symptoms Genitourinary Symptoms: No Symptoms Musculoskeletal: No Symptoms Skin: No Symptoms Neurological: No Symptoms Psychological: No Symptoms Endocrine: No Symptoms Hematologic/Lymphatic: No Symptoms Immunological/Allergic: No Symptoms - Past Medical History Pertinent Past Medical History: Yes Musculoskeletal History: Arthritis, Fibromyalgia GI Medical History: Ulcer Other Medical History: BLEEDING ULCER chronic pain from arthritis - Past Surgical History Past Surgical History: Yes Female Surgical History: Tubal Ligation - Social History Smoking Status: Current every day smoker How long have you smoked: few years Exposure to second hand smoke: No Drug Use: none Patient Lives Alone: No - Nursing Vital Signs Nursing Vital Signs: Initial Vital Signs Temperature 97.7 F 09/03/22 14:14 Pulse Rate 79 09/03/22 14:14 Respiratory Rate 18 09/03/22 14:14 Blood Pressure 145/80 09/03/22 14:14 O2 Sat by Pulse Oximetry 96 09/03/22 14:14 Pain Scale Pain Intensity 5 Hypertensive - [place] Coma Score Best Eye Response ([place]): (4) open spontaneously Best Verbal Response ([place]): (5) oriented Best Motor Response ([place]): (6) obeys commands [place] Total: 15 - Physical Exam General Appearance: no apparent distress Head Injury: tenderness (Occiput TTP) Eye Exam: PERRL/EOMI, eyes nml inspection ENT Exam: airway nml, No evidence of ENT injury, No dental injury, No clear fluid (ears), No clear fluid (nose) Neck Exam: supple, trachea midline, tenderness (Mild C-spine TTP) Respiratory/Chest Exam: normal breath sounds, No chest tenderness, No respiratory distress Cardiovascular Exam: normal heart sounds, regular rate/rhythm, normal peripheral pulses, No murmur Gastrointestinal Exam: soft, normal bowel sounds, No tenderness Back Exam: CVA tenderness (L CVA TTP), vertebral tenderness (Mild L-spine TTP/L buttock TTP) Extremity Exam: pelvis stable, tenderness (R posterior humerus TTP/No deformity/Good radial pulse, distal sensation, and capillary return) Peripheral Pulses: carotid (R): 2+, carotid (L): 2+ Neurologic Exam: alert, oriented x 3, cooperative, shift boss II-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 nml as tested, normal mood/affect, nml cerebellar function, nml station & gait, sensation nml Skin Exam: normal color, warm, dry, No rash SpO2 Interpretation: normal SpO2: 96 O2 Delivery: Room Air - Course Nursing assessment & vital signs reviewed: Yes - Radiology Exams Humerus X-ray Interpretation: Discussed w/ radiologist (L humerusa neg per Rad/L humerus neg per rad, punctate FB proximal to ulna) - CT Exams Head CT Interpretation: Discussed w/radiologist (CT head neg per Rad) Cervical Spine CT Interpretation: Discussed w/radiologist (CT C-spine neg per Rad) Chest CT Interpretation: Discussed w/radiologist (CT chest neg per Rad) Abdomen/Pelvis CT Interpretation: Discussed w/radiologist (CT ab-pelvis neg per Rad) Ordered Tests: Active Orders 24 hr Category Date Time Status ABDOMEN AND PELVIS W/0 CONTRAS [CT] Stat Exams 09/03/22 14:54 Completed CERVICAL SPINE WO CONTRAST [CT] Stat Exams 09/03/22 14:54 Completed CHEST WITHOUT CONTRAST [CT] Stat Exams 09/03/22 14:54 Completed HEAD WITHOUT CONTRAST [CT] Stat Exams 09/03/22 14:54 Completed HUMERUS Routine Exams 09/03/22 15:29 Completed HUMERUS Stat Exams 09/03/22 14:57 Completed Medication Summary Discontinued Medications Generic Name Dose Route Start Last Admin Trade Name Freq PRN Reason Stop Dose Admin Diphtheria/Tetanus/Acell Pertussis 0.5 ml 09/03/22 16:53 09/03/22 16:57 Tdap --Diph,Pertuss(Acell),Tet Vac/Pf 0.5 Ml Vial IM 09/03/22 16:54 0.5 ml .ONCE ONE Administration Diphtheria/Tetanus/Acell Pertussis Confirm 09/03/22 16:56 Tdap --Diph,Pertuss(Acell),Tet Vac/Pf 0.5 Ml Vial Administered 09/03/22 16:57 Dose 0.5 ml IM .STK-MED ONE Ketorolac Tromethamine 15 mg 09/03/22 14:55 09/03/22 16:26 Ketorolac Tromethamine 30 Mg/Ml Inj IM 09/03/22 14:56 15 mg STAT ONE Administration Ketorolac Tromethamine Confirm 09/03/22 16:24 Ketorolac Tromethamine 30 Mg/Ml Inj Administered 09/03/22 16:25 Dose 30 mg .ROUTE .STK-MED ONE - Progress Progress: improved Progress Note: 09/03/22 16:45 Pain improved w 15mg IM Toradol FB seen on XR of R humerus posterior to proximal ulna most likely old as pt has no new puncture wound and is NTTP 09/03/22 16:49 Counseled pt/family regarding: diagnosis, need for follow-up, rad results - Departure Departure Disposition: Home Clinical Impression: Fall, Minor closed head injury, Cervical strain, acute, Lumbar strain, Multiple contusions Condition: Stable Critical Care Time: No Referrals: ASHLEE CENTENO TABLE GAMES MANAGER [Primary Care Provider] - Follow up/PCP as directed Instructions: Contusion (DC), Preventing Falls in Older Adults, Minor Head Inju ry (DC), Cervical Muscle Strain (DC) Additional Instructions: Ice to contused areas for 12-24 hours Continue with home pain meds Follow up with company Return to ER as needed Forms: Work/School Release Form
--- NOTE | 2022-09-03 16:16 | XRAY ---
Indication: Fall from ladder. Multiple contiguous axial images obtained through the head without contrast. Comparison: None Normal appearing brain parenchyma, ventricles, and bony calvarium. Visualized paranasal sinuses and mastoid air cells are clear. Impression: Normal CT head without contrast exam.
--- NOTE | 2022-09-03 16:20 | XRAY ---
Indication: Fall from ladder. Multiple contiguous axial images obtained through the cervical spine. Sagittal and coronal reformatted images obtained. Comparison: None Axial images negative for acute fracture, suspicious bony lesions, or spinal canal stenosis. Minimal C4-C7 degenerative endplate spurring and moderate left C4-C5 degenerative facet hypertrophy. Sagittal and coronal reformatted images demonstrates normal alignment with minimal C6-C7 disc space narrowing. No acute compression fracture, subluxation, or jumped facet. Normal appearing craniocervical junction. Visualized noncontrasted soft tissues demonstrates scattered nonpathologic centimeter/subcentimeter cervical lymph nodes bilaterally. CT head and CT chest report separately. Impression: Minimal multilevel degenerative changes. Remaining CT cervical spine is negative.
--- NOTE | 2022-09-03 16:22 | XRAY ---
Indication: Fall from ladder. Multiple contiguous axial images obtained through the chest without contrast. Comparison: None Lungs demonstrates minimal bilateral dependent atelectasis and minimal right middle lobe fibrosis/scarring. No suspicious pulmonary mass, infiltrate, effusion, or pneumothorax. Heart not enlarged. Aorta is normal course and caliber. No pathologic mediastinal lymphadenopathy. Bony thorax intact with minimal degenerative changes throughout the thoracic spine. CT abdomen/pelvis reported separately. Impression: Minimal thoracic degenerative spondylosis and minimal right middle lobe fibrosis/scarring. Remaining CT chest without contrast exam is negative.
[2022-09-03] MEDS ORDERED: TORAdol 30 mg Injection ONE (16:24)
--- NOTE | 2022-09-03 16:24 | XRAY ---
Indication: Fall from ladder. Multiple contiguous axial images obtained through the abdomen and pelvis without contrast. Comparison: None CT chest reported separately. Noncontrasted stomach and bowel loops appear nonobstructed. No free fluid/air. Remaining liver, gallbladder, pancreas, spleen, adrenal glands, kidneys, ureters, bladder, and uterus appear unremarkable for noncontrast exam. Minimal aortoiliac calcifications without AAA. Osseous structures intact with minimal degenerative changes of the visualized thoracic spine and L5-S1 degenerative vacuum disc phenomena. Impression: Minimal degenerative spondylosis and L5-S1 degenerative disc disease. Remaining CT abdomen/pelvis without contrast exam is negative.
--- NOTE | 2022-09-03 16:28 | XRAY ---
Indication: Fall from ladder. Comparison: None 2 view right humerus demonstrates tiny punctate foreign body in soft tissues posterior to proximal ulna. No other bony, articular, or soft tissue abnormalities.
--- NOTE | 2022-09-03 16:28 | XRAY ---
Indication: Fall from ladder. Comparison: None 2 view left humerus demonstrates normal bones, articulation, and soft tissues.
[2022-09-03] MEDS ORDERED: Adacel Vial IM ONE ×2 (16:53→16:56)
[2022-09-03 16:56] VITALS: BP 134/76; PULSE 68
== END 2022-09-03 17:08 | disposition home or self-care (01) ==
LOC: ED 13:42
DX: S09.90XA Unspecified injury of head, initial encounter (principal); S16.1XXA Strain of muscle, fascia and tendon at neck level, initial encounter; S39.012A Strain of muscle, fascia and tendon of lower back, initial encounter; T14.8XXA Other injury of unspecified body region, initial encounter; W11.XXXA Fall on and from ladder, initial encounter; Y92.512 Supermarket, store or market as the place of occurrence of the external cause; Y99.0 Civilian activity done for income or pay; R51.9 Headache, unspecified; M79.621 Pain in right upper arm; Z72.0 Tobacco use; Z79.899 Other long term (current) drug therapy
CPT/HCPCS: 70450; 71250; 72125; 73060; 74176; 90471; 90715; 96372; 99284; J1885

== ENCOUNTER 2022-10-28 15:25 | Day surgery (SDC) | payer BC ==
[2022-10-28] MEDS ORDERED: BUPIVACAINE 0.5% VIAL IJ ONE (15:26)
[2022-10-28] MEDS ORDERED: Depo-Medrol 40 MG/ML IM ONE (15:26)
[2022-10-28] MEDS ORDERED: DIPRIVAN 200 MG/20 ML IV ONE (17:55)
--- NOTE | 2022-10-28 19:40 | XRAY ---
Indication: Right knee injection. Intraoperative fluoroscopy provided for 8 second. Single digital spot image submitted for interpretation demonstrates needle tip projecting over the right femur intercondylar notch. Small amount of contrast injected for needle tip placement. Correlate with intraoperative findings/report.
--- NOTE | 2022-10-29 09:18 | XRAY ---
8 seconds of fluoroscopy was used in surgery for a right intra-articular knee injection.
== END 2022-10-28 18:24 | disposition home or self-care (01) ==
LOC: SDC-PAIN 15:25
PROVIDERS: ATTEND Psychiatry & Neurology Pain Medicine
DX: M17.11 Unilateral primary osteoarthritis, right knee (principal); Z79.899 Other long term (current) drug therapy
CPT/HCPCS: 20550; 20610; 73560; 77002; 81025; J1030; J2704; Q9966

== ENCOUNTER 2023-01-27 13:25 | Day surgery (SDC) | payer BC ==
[2023-01-27] MEDS ORDERED: BUPIVACAINE 0.5% VIAL IJ ONE (13:26)
[2023-01-27] MEDS ORDERED: GELSYN-3 IU ONE (13:26)
[2023-01-27] MEDS ORDERED: Depo-Medrol 40 MG/ML IM ONE (13:26)
[2023-01-27] MEDS ORDERED: DIPRIVAN 200 MG/20 ML IV ONE ×2 (15:19→15:28)
--- NOTE | 2023-01-27 16:28 | XRAY ---
Indication: Right knee injection Intraoperative fluoroscopy provided for 8 seconds. Single digital spot image submitted for interpretation demonstrates needle tip projecting over the right femur intercondylar notch. Small amount of contrast injected for needle tip placement. Correlate with intraoperative findings/report.
[2023-01-27] MEDS ORDERED: Lactated Ringers 1,000 ML IV ONE (16:43)
--- NOTE | 2023-01-28 08:45 | XRAY ---
8 seconds of fluoroscopy was used in surgery for a right intra-articular knee and pes anserine bursa injection.
== END 2023-01-27 16:00 | disposition home or self-care (01) ==
LOC: SDC-PAIN 13:25
PROVIDERS: ATTEND Psychiatry & Neurology Pain Medicine
DX: M17.11 Unilateral primary osteoarthritis, right knee (principal); Z79.899 Other long term (current) drug therapy
CPT/HCPCS: 20610; 73560; 77002; 81025; J1030; J2704; J7328; Q9966

== ENCOUNTER 2023-02-03 09:07 | Day surgery (SDC) | payer BC ==
[2023-02-03] MEDS ORDERED: GELSYN-3 IU ONE (09:08)
[2023-02-03] MEDS ORDERED: DIPRIVAN 200 MG/20 ML IV ONE ×2 (11:32→11:42)
[2023-02-03] MEDS ORDERED: SUBLIMAZE 100 MCG/2 ML ONE (11:33)
--- NOTE | 2023-02-03 12:22 | XRAY ---
Indication: Right knee injection. Intraoperative fluoroscopy provided for 7 seconds. Single digital spot image submitted for interpretation demonstrates needle tip projecting over the right femur intracondylar notch. Small amount of contrast injected for needle tip placement. Correlate with intraoperative findings/report.
--- NOTE | 2023-02-03 12:45 | XRAY ---
7 seconds of fluoroscopy was used in surgery for a right intra-articular knee injection.
[2023-02-03] MEDS ORDERED: Lactated Ringers 1,000 ML IV ONE (13:18)
== END 2023-02-03 12:00 | disposition home or self-care (01) ==
LOC: SDC-PAIN 09:07
PROVIDERS: ATTEND Psychiatry & Neurology Pain Medicine
DX: M17.11 Unilateral primary osteoarthritis, right knee (principal)
CPT/HCPCS: 20610; 73560; 77002; 81025; J2704; J3010; J7328; Q9966

== ENCOUNTER 2023-02-10 10:00 | Day surgery (SDC) | payer BC ==
[2023-02-10] MEDS ORDERED: GELSYN-3 IU ONE (10:01)
[2023-02-10 11:22] LABS: HCG URINE TEST NEGATIVE (NEGATIVE)
[2023-02-10] MEDS ORDERED: DIPRIVAN 200 MG/20 ML IV ONE (12:41)
--- NOTE | 2023-02-10 14:57 | XRAY ---
Indication: Right knee injection. Interoperative fluoroscopy provided for 16 seconds. Single digital spot image submitted for interpretation demonstrates needle tip projecting over the right femur intracondylar notch. Small amount of contrast injected for needle tip placement. Correlate with intraoperative findings/report.
--- NOTE | 2023-02-10 14:57 | XRAY ---
16 seconds of fluoroscopy was used in surgery for a right intra-articular knee injection.
[2023-02-10] MEDS ORDERED: Lactated Ringers 1,000 ML IV ONE (15:05)
== END 2023-02-10 13:15 | disposition home or self-care (01) ==
LOC: SDC-PAIN 10:00
PROVIDERS: ATTEND Psychiatry & Neurology Pain Medicine
DX: M17.11 Unilateral primary osteoarthritis, right knee (principal); Z79.899 Other long term (current) drug therapy
CPT/HCPCS: 20610; 36415; 73560; 77002; 81025; J2704; J7328; Q9966

== ENCOUNTER 2024-09-21 12:30 | Day surgery (SDC) | payer BC ==
[2024-09-21] MEDS ORDERED: BUPIVACAINE 0.5% VIAL IJ ONE (12:31)
[2024-09-21] MEDS ORDERED: Depo-Medrol 40 MG/ML IM ONE (12:31)
[2024-09-21 13:19] LABS: HCG URINE TEST NEGATIVE (NEGATIVE)
[2024-09-21] MEDS ORDERED: DIPRIVAN 200 MG/20 ML IV ONE (14:28)
--- NOTE | 2024-09-21 14:54 | XRAY ---
Indication: Right knee, pes anserine, and infrapatellar bursa injection. Intraoperative fluoroscopy provided for 9 seconds. Single digital spot images submitted for interpretation demonstrates needle tip projecting over right femur intercondylar notch. Small amount of contrast injected for needle tip placement. Correlate with intraoperative findings/report.
--- NOTE | 2024-09-21 15:02 | XRAY ---
9 seconds of fluoroscopy was used in surgery for a right intra-articular knee, pes anserine, and infrapatellar bursa injection.
== END 2024-09-21 14:55 | disposition home or self-care (01) ==
LOC: SDC-PAIN 12:30
PROVIDERS: ATTEND Psychiatry & Neurology Pain Medicine
DX: M17.11 Unilateral primary osteoarthritis, right knee (principal); M70.51 Other bursitis of knee, right knee
CPT/HCPCS: 20610; 73560; 77002; 81025; J2704; Q9966